=== PATIENT | female | born 1960 | race Two or more races ===

== ENCOUNTER 2018-09-16 12:23 | Day surgery (SDC) | payer OTHER ==
[~2018-09-16] VITALS: Ht 160 cm; Wt 78.8 kg
[~2018-09-16 12:23] MED LIST: ALPR1TAB2 PO; SIMV40TA3 PO
--- NOTE | 2018-09-16 14:31 | PREAC ---
Date/Time of Note Date/Time of Note DATE: 09/16/18 TIME: 14:30 Anesthesia Eval and Record Evaluation Time Pre-Procedure Interview DATE: 09/16/18 TIME: 14:30 Age 58 Sex female NPO: 8 hrs Preoperative diagnosis EPIGASTRIC PAIN Planned procedure EGD AND COLONOSCOPY Past Medical History Past Medical History: Includes Pulm: Other (LEFT BREAT CA WITH LUMPECTOMY) GI: GERD Surgery & Anesthesia Issues No known issue Meds Anticoagulation: No Beta Reji within 24 hr: No Reason Beta Reji not given: Pt. not on B-Reji Reported Medications Simvastatin (Simvastatin) 40 Mg Tablet, 40 MG PO HS, TAB 11/08/14 Alprazolam* (Xanax*) 1 Mg Tab, 1 MG PO QHS for ANXIETY, TAB 11/08/14 Meds reviewed: Yes Allergies Coded Allergies: No Known Drug Intolerances (Unverified Allergy, Unknown, 11/08/14) Allergies Reviewed: Yes Labs/Studies Labs Reviewed: Reviewed by anesthesiologist test: N/A Pre-procedure Exam Airway: Adequate mouth opening, Adequate thyromental dist Mallampati: Mallampati I Teeth: Normal Lung: Normal Heart: Normal ASA Physical Status ASA physical status: 2 Emergency: None Planned Anesthetic General/MAC: MAC Planned Pain Management Parenteral pain med Pre-operative Attestations Prior to commencing anesthesia and surgery, the patient was re-evaluated, there was verification of: *The patient's identity *The results of appropriate recent lab work and preoperative vital signs *The above evaluation not changing prior to induction *Anesthetic plan, risk benefits, alternative and complications discussed with patient/family; questions answered; patient/family understands, accepts and wishes to proceed. ELDA MILAN Sep 16, 2018 14:31
[2018-09-16] MEDS ORDERED: LIDOCAINE 2% (SDV) 5 ML INJ ONE (14:32)
[2018-09-16] MEDS ORDERED: PROPOFOL 60 ML ONE (14:32)
[2018-09-16] MEDS ORDERED: WELLBUTRIN (14:34)
[2018-09-16] MEDS ORDERED: ASPIRIN (14:34)
[2018-09-16] MEDS ORDERED: LETROZOLE (14:35)
[2018-09-16] MEDS ORDERED: CALCIUM (14:35)
[2018-09-16] MEDS ORDERED: VITAMIN D3 (14:35)
[2018-09-16] MEDS ORDERED: VITAMIN B (14:35)
[2018-09-16 14:36] VITALS: Ht 160 cm; Wt 78.8 kg
[2018-09-16 14:38] VITALS: BP 147/80; PULSE 86; RESP 17
[2018-09-16 15:52] VITALS: BP 114/56; PULSE 78; RESP 15
--- NOTE | 2018-09-16 19:43 | PAC ---
Date/Time of Note Date/Time of Note DATE: 09/16/18 TIME: 19:43 Post-Anesthesia Notes Post-Anesthesia Note Last documented vital signs Vital Signs Date Temp Pulse Resp B/P (MAP) Pulse Ox O2 O2 Flow FiO2 Time Delivery Rate 09/16/18 98.1 78 15 114/56 99 15:52 (75) 09/16/18 98.2 Room Air 14:38 Activity: WNL Respiratory function: WNL Cardiovascular function: WNL Mental status: Baseline Pain reasonably controlled: Yes Hydration appropriate: Yes Nausea/Vomiting absent: Yes ELDA MILAN Sep 16, 2018 19:43
== END 2018-09-16 17:14 | disposition home or self-care (01) ==
LOC: GIL 12:23
PROVIDERS: ATTEND Internal Medicine Gastroenterology
DX: R19.4 Change in bowel habit (principal); D12.0 Benign neoplasm of cecum; K29.50 Unspecified chronic gastritis without bleeding; K64.8 Other hemorrhoids; K57.30 Diverticulosis of large intestine without perforation or abscess without bleeding
CPT/HCPCS: 43239; 45380; 88305; 88312; Z7610